=== PATIENT | female | born 1975 ===

== ENCOUNTER 2017-09-14 10:29 | Outpatient (CLI) | payer OTHER | END 2017-09-14 10:33 | disposition home or self-care (01) | LOC: LAB 10:29 | DX: D64.89 Other specified anemias (principal); E03.8 Other specified hypothyroidism; E11.9 Type 2 diabetes mellitus without complications; E78.2 Mixed hyperlipidemia; E55.9 Vitamin D deficiency, unspecified; Z12.11 Encounter for screening for malignant neoplasm of colon; N39.0 Urinary tract infection, site not specified ==

== ENCOUNTER → 2018-09-15 09:28 | Outpatient (CLI) | payer OTHER | END | disposition home or self-care (01) | LOC: LAB 09:28 | DX: E03.8 Other specified hypothyroidism (principal); D64.89 Other specified anemias; Z12.11 Encounter for screening for malignant neoplasm of colon; N95.1 Menopausal and female climacteric states; I10 Essential (primary) hypertension; C51.9 Malignant neoplasm of vulva, unspecified; E83.51 Hypocalcemia; A64 Unspecified sexually transmitted disease; N39.0 Urinary tract infection, site not specified; R97.8 Other abnormal tumor markers; R79.89 Other specified abnormal findings of blood chemistry ==

== ENCOUNTER 2018-10-15 08:13 | Outpatient (CLI) | payer OTHER | END 2018-10-15 08:22 | disposition home or self-care (01) | LOC: MAMO-SONO 08:13 | DX: N60.11 Diffuse cystic mastopathy of right breast (principal); N60.12 Diffuse cystic mastopathy of left breast; Z12.31 Encounter for screening mammogram for malignant neoplasm of breast; Z87.898 Personal history of other specified conditions ==